=== PATIENT | female | born 1980 | race African-American/Black ===

== ENCOUNTER 2018-09-10 15:07 | Inpatient (IN) | payer SELFPAY ==
[~2018-09-10] VITALS: Ht 175.3 cm; Wt 111.8 kg
[2018-09-15] MEDS ORDERED: LACTATED RINGER'S 1,000 ML IV SCH (16:20)
[2018-09-15] MEDS ORDERED: OXYTOCIN 30 UNITS/LR 500 ML IV PRN ×2 (16:30→22:30)
[2018-09-15] MEDS ORDERED: METHYLERGONOVINE 0.2 MG INJ IM PRN ×2 (16:30→22:30)
[2018-09-15] MEDS ORDERED: MISOPROSTOL 200 MCG TAB PR PRN ×2 (16:30→22:30)
[2018-09-15] MEDS ORDERED: CARBOPROST 250 MCG INJ IM PRN ×2 (16:30→22:30)
[2018-09-15] MEDS ORDERED: OXYTOCIN 30 UNITS/LR 500 ML IV SCH (16:30)
[2018-09-15] MEDS ORDERED: CEFAZOLIN 2 GM/50 ML (PMX) 50 ML IVPB SCH (16:30)
[2018-09-15] MEDS ORDERED: morphine SULFATE/PF (10 MG/10 ML) INJ ONE (16:42)
[2018-09-15] MEDS ORDERED: FENTAnyl 50 MCG/ML VIAL ONE (16:42)
--- NOTE | 2018-09-15 16:42 | PREAC ---
Date/Time of Note Date/Time of Note DATE: 09/15/18 TIME: 16:41 Anesthesia Eval and Record Evaluation Time Pre-Procedure Interview DATE: 09/15/18 TIME: 16:41 Age 38 Sex female NPO: 8 hrs Preoperative diagnosis iup at 39 weeks Planned procedure repeat c section Past Medical History Past Medical History: Includes GI: Obesity Heme: Anemia Surgery & Anesthesia Issues No known issue Meds Anticoagulation: No Beta Feliciano within 24 hr: No Reason Beta Feliciano not given: Pt. not on B-Feliciano Current Medications Lactated Ringer's 1,000 ml @ 125 mls/hr Q8H IV ; Start 09/15/18 at 16:20 Cefazolin Sodium/ Dextrose 50 ml @ 100 mls/hr ONCE IVPB ; Start 09/15/18 at 16:30 Oxytocin/Lactated Ringer's 500 ml @ 125 mls/hr POST IV ; Start 09/15/18 at 16:30 Oxytocin/Lactated Ringer's 500 ml @ 0 mls/hr ONCE PRN IV .VAGINAL BLEEDING; Start 09/15/18 at 16:30 Methylergonovine Maleate (Methergine) 0.2 mg ONCE PRN IM .VAGINAL BLEEDING; Start 09/15/18 at 16:30 Carboprost Tromethamine (Hemabate) 250 mcg ONCE PRN IM .VAGINAL BLEEDING; Start 09/15/18 at 16:30 Misoprostol (Cytotec) 1,000 mcg ONCE PRN AR .VAGINAL BLEEDING; Start 09/15/18 at 16:30 Meds reviewed: Yes Allergies Coded Allergies: No Known Allergy (Unverified , 09/15/18) Allergies Reviewed: Yes Labs/Studies Labs Reviewed: Reviewed by anesthesiologist test: Positive Pre-procedure Exam Airway: Adequate mouth opening, Adequate thyromental dist Mallampati: Mallampati II Teeth: Normal Lung: Normal Heart: Normal ASA Physical Status ASA physical status: 2 Emergency: None Planned Anesthetic Neuraxial: Spinal Planned Pain Management Sub-arachniod narcotics Pre-operative Attestations Prior to commencing anesthesia and surgery, the patient was re-evaluated, there was verification of: *The patient's identity *The results of appropriate recent lab work and preoperative vital signs *The above evaluation not changing prior to induction *Anesthetic plan, risk benefits, alternative and complications discussed with patient/family; questions answered; patient/family understands, accepts and wishes to proceed. BRITTANI JASON Sep 15, 2018 16:42
[2018-09-15] MEDS ORDERED: ONDANSETRON 4 MG INJ ONE (16:48)
[2018-09-15] MEDS ORDERED: DEXAMETHASONE 4 MG/ML 1 ML INJ ONE (16:48)
[2018-09-15 16:56] VITALS: Ht 175.3 cm; Wt 111.8 kg
[2018-09-15 16:59] VITALS: BP 132/77; PULSE 70; RESP 20
[2018-09-15] MEDS ORDERED: PNV11TAB PO (17:01)
--- NOTE | 2018-09-15 18:34 | HP ---
Date/Time of Note Date/Time of Note DATE: 09/15/18 TIME: 18:21 OB - History Hx of Present Free Text/Dictation 38yo at 39w5d with x3 previous c/s here for repeat c/s she was late entry at close to 34w only had limited visits in out of coutry with limited PNR Hx of for ist due to meconium aspiration. admitted for repeat c/s Chief Complaint: for repea c/s Estimated Due Date: Sep 17, 2018 : 4 Para: 3 Spontaneous : 0 Therapeutic : 0 Care: Limited Care Ultrasounds: Normal mid trimester US Obstetrical Complications: None Medical Complications: None Past Family/Social History * Past Medical, Surgical, Family and Obstetric Histories reviewed from chart. Blood Type: B+ Rubella: immune RPR/VDRL: Negative GBS Status: Unknown HBsAG: Negative OB Admission Exam Vital Signs Vital Signs Vital Signs Date Temp Pulse Resp B/P (MAP) Pulse Ox O2 O2 Flow FiO2 Time Delivery Rate 09/15/18 98.0 70 20 132/77 98 Room Air 16:59 (95) Physical Exam HEENT: WNL Heart: Rhythm Normal Lungs: Clear, Equal Abdomen: WNL Extremities: Normal Reflexes: Normal Cervical Dilatation: other Station: Other Membranes: Intact Amniotic Fluid: Unevaluable Heart Rate: 140's Accelerations: Accelerations Present Decelerations: No Decelerations Varibility: Moderate Contractions on Admission: None (no VE) Last 72 hours Lab Results CBC & BMP 09/15/18 16:30 OB Assessment/Plan Reason for admission: section (`) Other Assessment: IUP 39w5d with x3 previous c/s Plan: Section FELISA YEE MD Sep 15, 2018 18:31
[2018-09-15] MEDS ORDERED: OXYTOCIN 30 UNITS/LR 500 ML IV ONE (20:00)
[2018-09-15] MEDS ORDERED: HYDROmorphONE 0.5 MG/0.5 ML SYG IV PRN ×2 (20:00)
[2018-09-15] MEDS ORDERED: KETOROLAC 30 MG INJ IV PRN (20:00)
[2018-09-15] MEDS ORDERED: DIPHENHYDRAMINE 50 MG INJ IV PRN ×2 (20:00→22:30)
[2018-09-15] MEDS ORDERED: NALOXONE (0.4 MG/ML) INJ IV PRN (20:00)
[2018-09-15] MEDS ORDERED: ZOLPIDEM 5 MG TAB PO PRN ×2 (20:00→22:30)
[2018-09-15] MEDS ORDERED: ONDANSETRON 4 MG INJ IV PRN ×2 (20:00→22:30)
--- NOTE | 2018-09-15 20:26 | OPPN ---
Date/Time of Note Date/Time of Note DATE: 09/15/18 TIME: 20:18 Operative Report Planned Procedure Procedure date Sep 15, 2018 Procedure(s) repeat LTCS Performed by see signature line Electricity Trader: OMID MUSE 2nd Electricity Trader none Anesthesiologist: BRITTANI JASON Pre-procedure diagnosis IUP 39w5d with X3 previous c/s [id number] Anesthesia Type: Gccfs0f spinal Post-Procedure Post-procedure diagnosis delivered normal male infant macrosomic Findings Live Baby [m], Apgars [8] and [9], weight [9lb20z], position [RSA], [breech] presentation [0]cord. Estimated Blood Loss: 400 - 500 mls Specimen(s) none Grafts/Implant(s) none Complication(s) none FELISA YEE MD Sep 15, 2018 20:26
[2018-09-15] MEDS: LACTATED RINGER'S 1,000 ML IV SCH (22:25)
[2018-09-15 22:30] VITALS: BP 112/58; PULSE 51; RESP 17
[2018-09-15] MEDS ORDERED: LANOLIN HPA 1 PKT TOP PRN (22:30)
--- NOTE | 2018-09-15 23:05 | PAC ---
Date/Time of Note Date/Time of Note DATE: 09/15/18 TIME: 23:05 Post-Anesthesia Notes Post-Anesthesia Note Last documented vital signs Vital Signs Date Temp Pulse Resp B/P (MAP) Pulse Ox O2 O2 Flow FiO2 Time Delivery Rate 09/15/18 98.0 70 20 132/77 98 Room Air 2155 (95) Activity: WNL Respiratory function: WNL Cardiovascular function: WNL Mental status: Baseline Pain reasonably controlled: Yes Hydration appropriate: Yes Nausea/Vomiting absent: Yes BRITTANI JASON Sep 15, 2018 23:05
[2018-09-15 23:30] VITALS: BP 99/51; PULSE 55; RESP 18
[2018-09-16] MEDS: LACTATED RINGER'S 1,000 ML IV SCH (01:03)
[2018-09-16 04:58] VITALS: BP 100/66; PULSE 55; RESP 18
[2018-09-16] MEDS: IBUPROFEN 600 MG TAB PO SCH ×5 (06:00→23:40)
[2018-09-16 08:00] VITALS: BP 100/56; PULSE 58; RESP 18
[2018-09-16] MEDS: SENNA/DOCUSATE NA (8.6MG/50MG) TAB PO SCH ×2 (11:22→20:23)
[2018-09-16 16:00] VITALS: BP 97/47; PULSE 62; RESP 18
[2018-09-16 20:00] VITALS: BP 91/51; PULSE 67; RESP 18
[2018-09-17 04:30] VITALS: BP 106/42; PULSE 61; RESP 18
[2018-09-17] MEDS: IBUPROFEN 600 MG TAB PO SCH ×3 (05:41→17:52)
[2018-09-17 08:00] VITALS: BP 99/54; PULSE 57; RESP 18
[2018-09-17] MEDS: SENNA/DOCUSATE NA (8.6MG/50MG) TAB PO SCH ×2 (10:05→21:38)
[2018-09-17] MEDS: OXYCODONE/ACETAMINOPHEN (5/325) TAB PO PRN ×2 (12:33→17:53)
[2018-09-17 17:14] VITALS: BP 112/59; PULSE 61; RESP 18
[2018-09-17 20:00] VITALS: BP 110/58; PULSE 67; RESP 20
--- NOTE | 2018-09-17 20:36 | PN ---
Date/Time of Note Date/Time of Note DATE: 09/17/18 TIME: 20:33 OB Subjective Subjective Subjective tolerating diet well urination ok no b.m yet OB Objective Objective Objective vSS afebrile abdomen soft wound dry calf neg lochia min OB Assessment/Plan Other Assessment: post R c/s #2 stable Other plan: as ordered FELISA YEE MD Sep 17, 2018 20:36
[2018-09-18] MEDS: IBUPROFEN 600 MG TAB PO SCH ×3 (00:02→11:47)
[2018-09-18] MEDS: OXYCODONE/ACETAMINOPHEN (5/325) TAB PO PRN ×4 (00:11→16:03)
--- NOTE | 2018-09-18 00:42 | OPR ---
DATE OF OPERATION: PREOPERATIVE DIAGNOSIS: , 39 weeks plus with a previous section, for elective repe at section. POSTOPERATIVE DIAGNOSIS: , 39 weeks plus with a previous section, for elective rep eat , delivered normal male . PROCEDURE: Repeat low transverse section. ANESTHESIA: Spinal. ANESTHESIOLOGIST: Dr. Jaziel Diallo. OPERATION PERFORMED: Repeat low transverse section. ESTIMATED BLOOD LOSS: 500 mL. DRY ICE MAKER: , 39+ weeks, with a previous section and breech presentation. PROCEDURE: Under proper induction of spinal anesthesia, the patient was placed in the frog position. Harris catheter was introduced into the bladder under sterile condition, repositioned to supine. Ab dominal wall was prepped and draped in usual aseptic manner. A transverse incision was made along th e previous incisional scar. Scar tissue was excised. Incision was carried down through the subcutan eous tissue to the anterior recti fascia which was incised transversely the length of the incision. Fascial flap was created by blunt and sharp dissection of tendinous attachment to rectus muscle split in the midline. Peritoneal cavity was entered. Low portion of the uterus was exposed and a transve rse incision was made above the vesicouterine reflection, carried down and reached the amniotic membr ane, ruptured, revealed clear amniotic fluid. Normal male was born from the right sacral ante rior position with assist breech extraction and the mouth and nose were cleaned, cord was delayed cla mped and cut, handed to the respiratory care personnel for further care. Cord blood was obtained. P lacenta was removed manually. Cavity was completely explored after uterus was exteriorized and uteri ne cavity was completely explored, and incision was closed using #1 chromic catgut in continuous taveras er, second layer using 0 chromic catgut in Lembert manner, thus imbricating the first layer of closur e. The bleeding controlled properly and using same suture 2-0 chromic with a thin needle. After all the procedures done, uterus was relocated into the abdominal cavity after the sponge count taken cor rect and irrigation done and the incisional site rechecked, which was intact and a piece of Surgicel was laid on top of the uterine incision. The parietal peritoneum was closed using 0 chromic catgut i n continuous manner, muscle closed with 0 chromic catgut in continuous manner. Fascia closed with #1 Vicryl in continuous manner in 2 segments. Subcutaneous tissue irrigated with water. This layer wa s approximated with a 2-0 plain in continuous manner after adequate hemostasis was secured. Skin penny sed with a 3-0 Monocryl in a subcutaneous manner. Steri-Strip applied. A pressure dressing applied. Estimated blood loss approximately 500 mL. The patient withstood the procedure and was sent to the recovery room in stable condition. Urine output was clear about 200 mL. Dictated By: ALINE CASIANO/ANGELINA Conf#: [id number] DID#: [id number] CC: NAKIA MIRELES MD;*EndCC*
[2018-09-18 04:55] VITALS: BP 105/53; PULSE 67; RESP 20
[2018-09-18 08:00] VITALS: BP 109/55; PULSE 62; RESP 18
[2018-09-18] MEDS ORDERED: DIPHTH/TET/ACEL PERTUSS (ADULT) 0.5 ML VIAL IM* ONE (09:00)
[2018-09-18] MEDS: SENNA/DOCUSATE NA (8.6MG/50MG) TAB PO SCH (09:00)
--- NOTE | 2018-09-18 11:02 | PD.PPDC ---
SOUND EFFECTS MANAGER Discharge Instruction Diagnosis [id number] Final Diagnosis: Uduxj2t s/p repeat c/s Condition [id number] Patient Condition: Tvkhf5m Stable Diet Wekei9Ol Diet: Dzhec3d Resume Regular Diet Activity/Restrictions Tjkxc0Vs Activity: Dvvjj8a May Shower Ctytj8Ti Restrictions: Jmikz8q No Exercising No Lifting Minimize Stair-climbing No Sexual Activity Nothing in the Vagina No Three Way No Tampons, douche Wound/Drain Care Instructions Clfln0Hy Wound/Drain Care Instructions: Sbbgi4j Wash with soap and water Keep clean and dry Follow-up Follow-up with Physician: 2, Week/Weeks Return to clinic for Qwbyk5Vi TECHNICAL COORDINATOR Instructions: Jyxzg2e Fever greater than 101 Chills Worsening abdominal pain Excessive Vaginal Bleeding More than 2 pads per hour Unable to tolerate diet Wuvnr2Hn OB Instructions: Gkipn9z Breast Tenderness Depression Blurried Vision Headache Kbdmq9Kg Surgical Instructions: Ndzgm9w Incisional Drainage Incisional Redness FELISA YEE MD Sep 18, 2018 11:01
--- NOTE | 2018-09-18 11:04 | DS ---
Date/Time of Note Date/Time of Note DATE: 09/18/18 TIME: 11:02 Obstetrical Discharge Record Final Diagnosis Final Diagnosis: Term delivered Section Section: Repeat Complications Augmentation: No Induction: No Rupture of Membranes: No Condition on Discharge Physical Assessment Last Vitals: vss afebrile Voiding: Yes Bowel Movement: Yes Breast: Soft, non-tender Fundus: Firm Abdomen and Incision: soft wound healing well Episiotomy: n/a Calf Tenderness: No Patient Condition: Stable FELISA YEE MD Sep 18, 2018 11:04
[2018-09-18 16:03] VITALS: BP 103/51; PULSE 61; RESP 18
--- NOTE | 2018-09-19 18:11 | DELSUM ---
Delivery Summary A-C Datetime Report Generated by CPN: 09/19/2018 18:11 DELIVERY PERSONNEL Firearms Expert: [place], [place] MATERNAL INFORMATION Delivery Anesthesia: Spinal Medications in Delivery: SEE ANESTHESIA FLOWSHEET Delivery QBL (ml): 600 Placenta Cultured: No Maternal Complications: None LABOR SUMMARY EDC: 09/17/2018 00:00 No. Babies in Womb: 1 Attempted: No Labor Anesthesia: None LABOR INFORMATION Reason for Induction: Not Applicable Onset of Labor: NA Group B Beta Strep: Not Done Antibiotics # of Doses: 1 Antibiotics Time of Last Dose: 09/15/2018 18:40 Steroids Given: None Reason Steroids Not Administered: Not Applicable MEMBRANES Membranes Rupture Method: Artificial Rupture of Membranes: 09/15/2018 18:59 Length of Rupture (hr): 0.03 Amniotic Fluid Color: Clear Amniotic Fluid Amount: Small Amniotic Fluid Odor: None STAGES OF LABOR Stage 3 hr: 0 Stage 3 min: 1 CSECTION DELIVERY Primary Indication: Repeat Elective Secondary Indication: Repeat Elective CSection Urgency: Elective CSection Incidence: Repeat CSection Incision: Lower Uterine Transverse BABY A INFORMATION Infant Delivery Date/Time: 09/15/2018 19:01 Method of Delivery: Born in Route : No : N/A Forceps: N/A Vacuum Extraction: N/A Shoulder Dystocia : N/A SHOULDER DYSTOCIA BABY A Delivery Date/Time: 09/15/2018 19:01 PRESENTATION/POSITION BABY A Presentation: Breech Breech Presentation: Single Footling PLACENTA INFORMATION BABY A Placenta Delivery Time : 09/15/2018 19:02 Placenta Method of Delivery: Manual Removal Placenta Status: Delivered SCORES BABY A Heart Rate 1 min: >100 bpm Resp Effort 1 min: Good Cry Reflex Irritability 1 min: Cough/Sneeze/Pulls Away Muscle Tone 1 min: Active Motion Color 1 min: Blue/Pale Resuscitation Effort 1 min: Tactile Stimulation SCORE 1 MIN: 8 Heart Rate 5 min: >100 bpm Resp Effort 5 min: Good Cry Reflex Irritability 5 min: Cough/Sneeze/Pulls Away Muscle Tone 5 min: Active Motion Color 5 min: Body [place], Extremit Blue Resuscitation Effort 5 min: Tactile Stimulation SCORE 5 MIN: 9 INFORMATION BABY A Gestational Age at Delivery: 39.5 Gestational Status: Full Term- 39- 40.6 Weeks Infant Outcome : Liveborn, with signs of life Infant Condition : Stable Sex: Male IDENTIFICATION/MEDS BABY A ID Band Number: [id number] ID Band Location: Right Leg; Left Leg Sensor Applied: Yes Sensor Number: [id number] Sensor Location : Cord Clamp Vitamin K Given : Not Given Erythromycin Given: Not Given WEIGHT/LENGTH BABY A Infant Birthweight (gm): 4480 Infant Weight (lb): 9 Weight (oz): 14 Infant Length (in): 21.50 Infant Length (cm): 54.61 CORD INFORMATION BABY A No. Cord Vessels: 3 Nuchal Cord : N/A Cord Blood Taken: Yes Infant Suction: Mouth; Nose ASSESSMENT BABY A Infant Complications: None Physical Findings at Delivery: Within Normal Limits Physical Findings- Other: TERMINAL MECONIUM Infant Respirations: Appears Normal Sample Finisher/ALS Called : No Infant Care By: MOOSE ANDINO Transferred To: Remains with Mother
== END 2018-09-18 18:10 | disposition home or self-care (01) | DRG 788 ==
LOC: EDSTATUS 16:11 → L-D 09-15 16:14 → PP1 09-15 22:28
PROVIDERS: ADMIT Obstetrics & Gynecology; ATTEND Obstetrics & Gynecology
PROC: 10D00Z1 Extraction of Products of Conception, Low, Open Approach (ICD-10-PCS; principal; 2018-09-15)
DX: O34.211 Maternal care for low transverse scar from previous cesarean delivery (principal); O99.214 Obesity complicating childbirth; E66.9 Obesity, unspecified; O36.63X0 Maternal care for excessive fetal growth, third trimester, not applicable or unspecified; Z37.0 Single live birth; Z3A.39 39 weeks gestation of pregnancy
CPT/HCPCS: 85025; 85610; 85730; 86592; 86850; 86900; 86901; 87340; 99464; J1100; J1885; J2274; J2405; J2590; J3010; J7120